=== PATIENT | male | born 1995 | race Hispanic/Latino ===

== ENCOUNTER 2019-01-07 21:54 | Emergency (ER) | payer MEDICAID, OTHER ==
[2019-01-07] MEDS ORDERED: CYCLOBENZAPRINE HCL 10 MG TABLET ONE (22:56)
[2019-01-07] MEDS ORDERED: TRAMADOL HCL 50 MG TABLET ONE (22:57)
[2019-01-07] MEDS ORDERED: ORPHENADRINE CITRATE 30 MG/ML ML ONE (23:45)
[2019-01-08] MEDS ORDERED: KETOROLAC TROMETHAMINE 60 MG/2 ML VIAL ONE (00:33)
== END 2019-01-08 01:00 | disposition home or self-care (01) ==
LOC: EDH 21:54
DX: S09.11XA Strain of muscle and tendon of head, initial encounter (principal); H66.92 Otitis media, unspecified, left ear; Y04.0XXA Assault by unarmed brawl or fight, initial encounter; Y93.89 Activity, other specified; Y92.89 Other specified places as the place of occurrence of the external cause; Y99.8 Other external cause status
CPT/HCPCS: 70450; 96372 ×2; 99284; J1885; J2360

== ENCOUNTER 2019-11-24 00:39 | Emergency (ER) | payer OTHER ==
[2019-11-24] MEDS ORDERED: FAMOTIDINE 20MG TAB 20 MG TAB ONE (01:06)
[2019-11-24] MEDS ORDERED: PREDNISONE 20 MG TABLET ONE (01:06)
== END 2019-11-24 01:23 | disposition home or self-care (01) ==
LOC: EDH 00:39
DX: L50.0 Allergic urticaria (principal)